=== PATIENT | female | born 1970 | race Caucasian/White ===

== ENCOUNTER 2016-11-07 20:33 | Emergency (ER) | payer BC ==
[2016-11-07] MEDS ORDERED: DIPHENHYDRAMINE 50 MG/ML VIAL ONE (20:55)
[2016-11-07] MEDS ORDERED: KETOROLAC TROMETHAMINE 30 MG/ML VIAL ONE (20:55)
[2016-11-07] MEDS ORDERED: NORMAL SALINE 250 ML IV ONE (20:56)
--- NOTE | 2016-11-07 22:31 | ER PHYSICIAN DOCUMENTATION ---
Physician Documentation [facility] Name:Shari Sahu Age:46 yrs Sex:Female :1970 Arrival Date:11/07/2016 Time:20:28 Bed4 Private MD:Krissy Roper ED, [place] Disposition: 11/07/16 22:07 Discharged to Home/Self Care. Impression: Acute Headache. - Condition is Good. - Discharge Instructions: HEADACHE, Unspecified. - Medical Reconciliation form form. - Follow up: Krissy Roper DO; When: As needed; Reason: Continuance of care. - Problem is new. - Symptoms are resolved. HPI: 11/07 21:17 This 46 yrs old Female presents to ER via Walk In with complaints of Headache.sc 21:17 The patient complains of pain to the occipital area. The patient describes the headache sc as aching, throbbing. Onset: The symptoms/episode began/occurred today, headaches on several days this past week since treatment with tamiflu and then cold sores and headache started 1 hour after acyclovir.. Associated signs and symptoms: Pertinent positives: nausea. Severity of symptoms: At its worst the pain was severe. Headache History: The patient has had previous headaches. The symptoms are alleviated by no otc meds for headache today. 21:19 Associated signs and symptoms: Pertinent positives: still one week of cough congestion sc and myalgias. Historical: - Allergies: Levaquin; - Home Meds: 1. Lamictal 200 mg oral tab 2. Trileptal 300 mg oral tab 3. [place] Thyroid 15 mg oral tab - PMHx: HYPOTHYROIDISM; BIPOLAR DISORDER; FIBROMYALGIA; - PSHx: APPENDECTOMY; TONSILLECTOMY; KNEE SURGERY; - Tetanus: > 10 years. - Ebola Screening: : Patient negative for fever greater than or equal to 101.5 degrees Fahrenheit, and additional compatible Ebola Virus Disease symptoms. Patient denies exposure to infectious person. Patient denies travel to an Ebola-affected area in the 21 days before illness onset. . - Immunization history: Flu Vaccine None. - Social history: Smoking status: Patient states was never smoker of tobacco. Patient/guardian denies using alcohol, street drugs. ROS: 21:19 Eyes: Negative for injury, pain, redness, and discharge. sc Neck: Negative for injury, pain, and swelling. Cardiovascular: Negative for chest pain, palpitations, and edema. Abdomen/GI: Negative for abdominal pain, nausea, vomiting, diarrhea, and constipation. Back: Negative for injury and pain. MS/Extremity: Negative for injury and deformity. 21:19 Skin: Negative for injury, rash, and discoloration. sc 21:19 Constitutional: Positive for body aches, fatigue, Negative for fever. 21:19 ENT: Positive for sinus congestion. 21:19 Respiratory: Positive for cough, with no reported sputum. 21:19 Neuro: Positive for headache. Exam: Head/Face: Normocephalic, atraumatic. Eyes: Pupils equal round and reactive to light, extra-ocular motions intact. Lids and lashes normal. Conjunctiva and sclera are non-icteric and not injected. Cornea within normal limits. Periorbital areas with no swelling, redness, or edema. ENT: Nares patent. No nasal discharge, no septal abnormalities noted. Tympanic membranes are normal and external auditory canals are clear. Oropharynx with no redness, swelling, or masses, exudates, or evidence of obstruction, uvula midline. Mucous membranes moist. Neck: Trachea midline, no thyromegaly or masses palpated, and no cervical lymphadenopathy. Supple, full range of motion without nuchal rigidity, or vertebral point tenderness. No meningismus. Chest/axilla: Normal chest wall appearance and motion. Nontender with no deformity. No lesions are appreciated. Cardiovascular: Regular rate and rhythm with a normal S1 and S2. No gallops, murmurs, or rubs. Normal PMI, no JVD. No pulse deficits. Respiratory: Lungs have equal breath sounds bilaterally, clear to auscultation and percussion. No rales, rhonchi or wheezes noted. No increased work of breathing, no retractions or nasal flaring. Abdomen/GI: Soft, non-tender, with normal bowel sounds. No distension or tympany. No guarding or rebound. No evidence of tenderness throughout. Back: No spinal tenderness. No costovertebral tenderness. Full range of motion. Skin: Warm, dry with normal turgor. Normal color with no rashes, no lesions, and no evidence of cellulitis. MS/ Extremity: Pulses equal, no cyanosis. Neurovascular intact. Full, normal range of motion, negative Homans's, calves equal bilaterally. 21:20 Neuro: Awake and alert, GCS 15, oriented to person, place, time, and situation. sc Cranial nerves II-XII grossly intact. Motor strength 5/5 in all extremities. Sensory grossly intact. Cerebellar exam normal. Normal gait. 21:20 Constitutional: The patient appears uncomfortable. 22:07 Neuro: Orientation: is normal, Gait: is steady. nh Vital Signs: 20:38 BP 113 / 81; Pulse 66; Resp 16; Temp 97.9; Pulse Ox 96% on R/A; Weight 58.51 kg; Height mk2 5 ft. 4 in. (162.56 cm); Pain 9/10; 21:06 BP 120 / 67 RA Sitting (auto/reg); Pulse 75 RA; Resp 14 S; Pulse Ox 95% on R/A; Pain em3 6/10; 21:37 Pain 2/10; mk2 22:29 BP 111 / 59; Pulse 69; Resp 13; Pulse Ox 96% on R/A; Pain 1/10; mk2 20:38 Body Mass Index 22.14 (58.51 kg, 162.56 cm) mk2 [place] Coma Score: 21:20 Eye Response: spontaneous(4). Verbal Response: oriented(5). Motor Response: obeys nh commands(6). Total: 15. MDM: 20:49 Patient medically screened. nh 21:20 Differential diagnosis: tension headache, vasomotor headache, med side effect. nh Neurological re-evaluation: normal neurological exam including cranial nerves, orientation, mentation, motor and sensory exam, cerebellar testing, GCS normal, and normal gait. Data reviewed: vital signs, nurses notes, old medical records, and as a result, I will continue to observe the patient, administer IV fluids. Dispensed Medications: 20:55 Drug: NS 0.9% 1000 ml; Route: IV; Rate: bolus; Site: left antecubital; mk2 22:29 Follow up: IV Status: Completed infusion; IV Intake: 1000ml mk2 20:55 Drug: Benadryl 25 mg; Route: IVP; Site: left antecubital; mk2 21:22 Follow up: Response: Nausea is decreased mk2 20:55 Drug: Compazine 10 mg; Route: IVPB; Site: left antecubital; mk2 21:22 Follow up: Response: Pain is decreased mk2 21:29 Follow up: IV Status: Completed infusion; IV Intake: 250ml mk2 20:55 Drug: Toradol 30 mg; Route: IVP; Site: left antecubital; mk2 21:22 Follow up: Response: Pain is decreased mk2 Signatures: Nayan Florentino MD MD sc Kruger, Meg, RN RN mk2
--- NOTE | 2016-11-07 22:31 | ER NURSING DOCUMENTATION ---
Nurse's Notes [facility] Name:Shari Sahu Age:46 yrs Sex:Female :1970 Arrival Date:11/07/2016 Time:20:28 Bed4 Private MD:Krissy Roper Diagnosis:Acute Headache Presentation: 11/07 20:34 Presenting complaint: Patient states: Pt states she has had an occipital headache since 2 2 pm. Admits to nausea, no vomiting, no photophobia. Transition of care: Home. Risk considerations: patient denies sudden onset of headache, syncopal episode, and "worst headache of life". Notified ED Physician of Dr. Florentino notified. 20:34 Method Of Arrival: Walk In [facility] 20:34 Acuity: ARTEMIO 3 2 Triage Assessment: 20:37 Headache History: The patient has had previous headaches. General: Appears in no mk2 apparent distress, Behavior is cooperative, crying. Pain: Complains of pain in occipital area Pain currently is 9 out of 10 on a pain scale. Pain: Pain began gradually, Also complains of nausea. Neuro: No deficits noted. Level of Consciousness is awake, alert, Oriented to person, place, time, event. Cardiovascular: No deficits noted. Respiratory: Respiratory effort is even, unlabored. GI: Reports nausea. Derm: No deficits noted. 20:55 EENT: Reports nasal congestion. Respiratory: Reports cough that is non-productive. 2 Historical: - Allergies: Levaquin; - Home Meds: 1. Lamictal 200 mg oral tab 2. Trileptal 300 mg oral tab 3. [place] Thyroid 15 mg oral tab - PMHx: HYPOTHYROIDISM; BIPOLAR DISORDER; FIBROMYALGIA; - PSHx: APPENDECTOMY; TONSILLECTOMY; KNEE SURGERY; - Tetanus: > 10 years. - Ebola Screening: : Patient negative for fever greater than or equal to 101.5 degrees Fahrenheit, and additional compatible Ebola Virus Disease symptoms. Patient denies exposure to infectious person. Patient denies travel to an Ebola-affected area in the 21 days before illness onset. . - Immunization history: Flu Vaccine None. - Social history: Smoking status: Patient states was never smoker of tobacco. Patient/guardian denies using alcohol, street drugs. Screenin:39 Infectious Disease Risk None. Abuse screen: Denies threats or abuse. Nutritional 2 screening: No deficits noted. Assessment: 20:39 See Triage Assessment done by same RN. mk2 Vital Signs: 20:38 BP 113 / 81; Pulse 66; Resp 16; Temp 97.9; Pulse Ox 96% on R/A; Weight 58.51 kg; Height mk2 5 ft. 4 in. (162.56 cm); Pain 9/10; 21:06 BP 120 / 67 RA Sitting (auto/reg); Pulse 75 RA; Resp 14 S; Pulse Ox 95% on R/A; Pain em3 6/10; 21:37 Pain 2/10; mk2 22:29 BP 111 / 59; Pulse 69; Resp 13; Pulse Ox 96% on R/A; Pain 1/10; mk2 20:38 Body Mass Index 22.14 (58.51 kg, 162.56 cm) mk2 [place] Coma Score: 21:20 Eye Response: spontaneous(4). Verbal Response: oriented(5). Motor Response: obeys sc commands(6). Total: 15. ED Course: 20:28 Patient arrived in ED. em3 20:33 Alla Aragon, RN is Primary Nurse. mk2 20:33 Krissy Roper DO is Private Physician. ma1 20:36 Triage completed. mk2 20:39 Arm band placed on Bed in low position Call Light in Reach Gowned HOB Elevated. mk2 20:49 Nayan Florentino MD is Attending Physician. sc 20:51 Labs drawn. By wildlife biostation research ecologist Held in ED. Inserted saline lock: 20 gauge in left antecubital em3 area and blood collected. 21:22 Valuables Remains with patient. Pulse ox on. NIBP on. Warm blanket given. mk2 22:06 Krissy Roper DO is Referral Physician. sc Administered Medications: 20:55 Drug: NS 0.9% 1000 ml; Route: IV; Rate: bolus; Site: left antecubital; mk2 22:29 Follow up: IV Status: Completed infusion; IV Intake: 1000ml mk2 20:55 Drug: Benadryl 25 mg; Route: IVP; Site: left antecubital; mk2 21:22 Follow up: Response: Nausea is decreased mk2 20:55 Drug: Compazine 10 mg; Route: IVPB; Site: left antecubital; mk2 21:22 Follow up: Response: Pain is decreased mk2 21:29 Follow up: IV Status: Completed infusion; IV Intake: 250ml mk2 20:55 Drug: Toradol 30 mg; Route: IVP; Site: left antecubital; mk2 21:22 Follow up: Response: Pain is decreased mk2 Intake: 21:29 IV: 250ml; Total: 250ml. mk2 22:29 IV: 1000ml; Total: 1250ml. mk2 Outcome: 22:07 Discharge ordered by . ma 22:29 Discharged to home ambulatory. mk2 22:29 Condition: improved 22:29 Discharge Assessment: Patient awake, alert and oriented x 3. No cognitive and/or functional deficits noted. Patient verbalized understanding of disposition instructions. 22:29 Discharge instructions given to patient, Instructed on discharge instructions, follow up and referral plans. medication usage. 22:29 IV D/Jacinto 22:30 Patient left the ED. mk2 Signatures: Nayan Florentino MD MD sc Kruger, Meg, RN RN mk2 Tayo Mireles [facility]
== END 2016-11-07 22:30 | disposition home or self-care (01) ==
LOC: ER 20:33
DX: R51 Headache (principal); R11.0 Nausea; M79.1 Myalgia; R53.83 Other fatigue; R05 Cough; Z79.899 Other long term (current) drug therapy
CPT/HCPCS: 96361; 96365; 96375; 99284; J1200; J1885; J7050